=== PATIENT | female | born 1980 | race Caucasian/White ===

== ENCOUNTER 2021-05-25 18:20 | Emergency (ER) | payer BC ==
[2021-05-25 18:43] VITALS: BP 126/71; PULSE 103; RESP 18; TEMP 98.3
[2021-05-25] MEDS ORDERED: BACITRACIN OINT 1 EACH PACKET TOPICAL ONE (18:55)
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
== END 2021-05-25 19:32 | disposition home or self-care (01) ==
LOC: EC 18:20
DX: O9A.211 Injury, poisoning and certain other consequences of external causes complicating pregnancy, first trimester (principal); T22.111A Burn of first degree of right forearm, initial encounter; T23.291A Burn of second degree of multiple sites of right wrist and hand, initial encounter; T31.0 Burns involving less than 10% of body surface; Z88.1 Allergy status to other antibiotic agents; Z3A.01 Less than 8 weeks gestation of pregnancy; X12.XXXA Contact with other hot fluids, initial encounter
CPT/HCPCS: 16020; 99283